=== PATIENT | female | born 1955 | race American Indian/Alaskan Native ===

== ENCOUNTER 2020-08-21 12:15 | Inpatient (IN) | payer MEDICARE ==
[2020-08-21] MEDS ORDERED: LORazepam 2 MG/ML VIAL IV ONE (13:18)
[2020-08-21] MEDS ORDERED: dilTIAZem 25 MG/5 ML INJ IV ONE (13:18)
[2020-08-21] MEDS ORDERED: LORazepam 2 MG/ML VIAL ONE (13:18)
[2020-08-21] MEDS ORDERED: dilTIAZem 25 MG/5 ML INJ ONE (13:18)
[2020-08-21] MEDS ORDERED: SODIUM CHLORIDE 0.9% 1000 ML 1,000 ML IV ONE (13:18)
--- NOTE | 2020-08-21 13:22 | Emergency Department Report ---
ED Palpitations HPI - General Chief Complaint: Arrhythmia/Palpitations Stated Complaint: PALPITATIONS ANXIETY Time Seen by Provider: 08/21/20 13:12 Source: patient Mode of arrival: Ambulatory Limitations: No Limitations - History of Present Illness Initial Comments: Patient is 65 years old female with no significant past medical history except for panic attack and remote history of atrial fibrillation 5 years ago for which the patient was admitted to this hospital. Patient stated that she is not taking any medication now. Patient presented with sudden onset of palpitation. Patient denied any shortness of breath or chest pain. Patient accompanied by her daughter and stated that her mother has severe panic attack and she have to be with her all the time. Patient denied any fever or chills. No nausea or vomiting. MD Complaint: rapid heart beat, palpitations, irregular heart beat, atrial fibrillation -: Sudden, This morning Context: occured during rest Arrythmia History: atrial fibrillation Associated Symptoms: denies other symptoms - Related Data Home Medications Medication Instructions Recorded Confirmed Last Taken Citalopram Hydrobromide [celeXA] 20 mg PO HS 07/18/15 07/18/15 Unknown clonazePAM [KlonoPIN] 2 mg PO HS 07/18/15 07/18/15 Unknown Previous Rx's Medication Instructions Recorded Last Taken Type Apixaban [Eliquis] 5 mg PO BID #60 tablet 07/20/15 Unknown Rx Furosemide [Lasix TAB] 40 mg PO QDAY #30 tablet 07/20/15 Unknown Rx Metoprolol [Lopressor TAB] 25 mg PO Q6H #30 day 07/20/15 Unknown Rx Potassium Chloride [K-Dur] 20 meq PO QDAY #30 tablet 07/20/15 Unknown Rx Allergies Allergy/AdvReac Type Severity Reaction Status Date / Time No Known Allergies Allergy Verified 10/24/13 13:28 ED Review of Systems ROS: Stated complaint: PALPITATIONS ANXIETY Other details as noted in HPI Comment: All other systems reviewed and negative Constitutional: denies: chills, fever Respiratory: denies: cough, shortness of breath Cardiovascular: palpitations. denies: chest pain, dyspnea on exertion, orthopnea Gastrointestinal: denies: abdominal pain, nausea, vomiting Neurological: denies: headache, weakness, numbness, paresthesias, confusion, abnormal gait Psychiatric: anxiety. denies: depression, auditory hallucinations, visual hallucinations, homicidal thoughts ED Past Medical Hx - Past Medical History Previous Medical History?: Yes Hx Hypertension: No Hx Heart Attack/AMI: No Hx Congestive Heart Failure: No Hx Diabetes: No Hx Deep Vein Thrombosis: No Hx Pulmonary Embolism: No Hx Psychiatric Treatment: Yes (anxiety) Hx Asthma: No Hx COPD: No Hx Tuberculosis: No Hx HIV: No Additional medical history: A-FIB 10 YRS AGO - Surgical History Past Surgical History?: No Hx Coronary Stent: No Hx Open Heart Surgery: No Hx Pacemaker: No Hx Internal Defibrillator: No Hx Cholecystectomy: No Hx Appendectomy: No Hx Breast Surgery: No - Social History Smoking Status: Former Smoker - Medications Home Medications: Home Medications Medication Instructions Recorded Confirmed Last Taken Type Citalopram Hydrobromide [celeXA] 20 mg PO HS 07/18/15 07/18/15 Unknown History clonazePAM [KlonoPIN] 2 mg PO HS 07/18/15 07/18/15 Unknown History Apixaban [Eliquis] 5 mg PO BID #60 tablet 07/20/15 Unknown Rx Furosemide [Lasix TAB] 40 mg PO QDAY #30 tablet 07/20/15 Unknown Rx Metoprolol [Lopressor TAB] 25 mg PO Q6H #30 day 07/20/15 Unknown Rx Potassium Chloride [K-Dur] 20 meq PO QDAY #30 tablet 07/20/15 Unknown Rx ED Physical Exam - General Limitations: No Limitations General appearance: alert, in no apparent distress, anxious - Head Head exam: Present: atraumatic, normocephalic, normal inspection - Eye Eye exam: Present: normal appearance, PERRL - ENT ENT exam: Present: normal exam, normal orophraynx, mucous membranes moist - Neck Neck exam: Present: normal inspection, full ROM. Absent: tenderness, meningismus - Respiratory Respiratory exam: Present: normal lung sounds bilaterally - Cardiovascular Cardiovascular Exam: Present: tachycardia, irregular rhythm - GI/Abdominal GI/Abdominal exam: Present: soft, normal bowel sounds. Absent: distended, tenderness, guarding, rebound, rigid, organomegaly, mass, bruit, pulsatile mass, hernia - Extremities Exam Extremities exam: Present: normal inspection, full ROM, normal capillary refill. Absent: tenderness, pedal edema, joint swelling, calf tenderness - Back Exam Back exam: Present: normal inspection, full ROM. Absent: CVA tenderness (R), CVA tenderness (L) - Neurological Exam Neurological exam: Present: alert, oriented X3, CN II-XII intact, normal gait, reflexes normal. Absent: motor sensory deficit - Psychiatric Psychiatric exam: Present: normal mood, anxious - Skin Skin exam: Present: warm, intact, normal color ED Course Vital Signs 08/21/20 08/21/20 08/21/20 12:26 13:10 13:15 Temperature 98.3 F Pulse Rate 79 169 H 178 H Respiratory 16 14 Rate Blood Pressure 143/88 130/92 Blood Pressure [Left] O2 Sat by Pulse 99 95 Oximetry 08/21/20 08/21/20 08/21/20 13:31 13:45 13:58 Temperature Pulse Rate 158 H 140 H 118 H Respiratory 18 17 17 Rate Blood Pressure 130/92 116/75 Blood Pressure 110/66 [Left] O2 Sat by Pulse 84 97 Oximetry ED Medical Decision Making - Lab Data Result diagrams: 08/21/20 13:27 08/21/20 13:27 - EKG Data -: EKG Interpreted by Wy - EKG Data 08/21/20 15:41 Atrial fibrillation with RVR heart rate of 156 - Radiology Data Radiology results: report reviewed - Medical Decision Making Patient is 65 years old female with no significant past medical history except for panic attack and remote history of atrial fibrillation 5 years ago for which the patient was admitted to this hospital. Patient stated that she is not taking any medication now. Patient presented with sudden onset of palpitation. Patient denied any shortness of breath or chest pain. Patient accompanied by her daughter and stated that her mother has severe panic attack and she have to be with her all the time. Patient denied any fever or chills. No nausea or vomiting. Patient Received Cardizem 20 mg IV and started on Cardizem drip. Chest x-ray is unremarkable. Labs reviewed and is unremarkable. I discussed the patient with Dr. Chavez, he agreed to admit the patient to medical service for further management. Critical Care Time: Yes Critical care time in (mins) excluding proc time.: 30 Critical care attestation.: If time is entered above; I have spent that time in minutes in the direct care of this critically ill patient, excluding procedure time. ED Disposition Clinical Impression: Atrial fibrillation with RVR Disposition: OP ADMIT IP TO THIS HOSP Is pt being admited?: Yes Condition: Stable
[2020-08-21] MEDS: dilTIAZem/D5W 100 MG/100 ML BAG IV SCH ×3 (13:30→14:46)
[2020-08-21 13:55] LABS: Basophils % (Auto) 0.5 % (0.0-1.8); Eosinophils % (Auto) 0.1 % (0.0-4.3); Hematocrit 36.6 % (30.3-42.9); Hemoglobin 12.1 gm/dl (10.1-14.3); Lymphocytes # (Auto) 1.5 K/mm3 (1.2-5.4); Lymphocytes % (Auto) 34.7 % (13.4-35.0); Mean Corpuscular HGB Conc 33 % (30-34); Mean Corpuscular Volume 85 fl (79-97); Monocytes # (Auto) 0.4 K/mm3 (0.0-0.8); Platelet Count 173 K/mm3 (140-440); Red Blood Count 4.32 M/mm3 (3.65-5.03); Red Cell Distribution Width 14.2 % (13.2-15.2)
[2020-08-21 14:16] LABS: Alanine Aminotransferase 28 units/L (7-56); BUN/Creatinine Ratio 20; Blood Urea Nitrogen 16 mg/dL (7-17); Hemolysis Index 7
--- NOTE | 2020-08-21 14:22 | XRay Report ---
CHEST 1 VIEW INDICATION / CLINICAL INFORMATION: palpitations. COMPARISON: No prior chest radiographs are available. FINDINGS: SUPPORT DEVICES: None. HEART / MEDIASTINUM: Cardiac size is borderline to mildly enlarged. LUNGS / PLEURA: There is mild interstitial pulmonary edema without suggestion of pneumonia or signifi cant pleural effusion. No pneumothorax. ADDITIONAL FINDINGS: No significant additional findings. IMPRESSION: 1. Borderline cardiomegaly with mild interstitial pulmonary edema. Signer Name: Annmarie Hankins MD Signed: 08/21/2020 2:18 PM Workstation Name: [id number]
--- NOTE | 2020-08-21 21:14 | History and Physical Report ---
History of Present Illness Date of examination: 08/21/20 Date of admission: 08/21/20 15:42 Chief complaint: Palpitations since a.m. History of present illness: 65-year-old -[place] female with history of atrial fibrillation for the past 10 years and anxiety disorder and hypertension comes in for palpitations since 5 AM. Patient is apparently not taking her medication. Patient was diagnosed with atrial fibrillation about 5 years ago. First of which she was admitted to the hospital. Patient is not on any anticoagulation antihypertensives. Patient is noncompliant. Patient presents with sudden onset of palpitation and no shortness of breath. Daughter states that her mother had severe panic attack and she has to be with her all the time. No fever or chills. No exposure to coronavirus. No chest pain. No diaphoresis. No shortness of breath. Only palpitations examination. Heart rate was in the 120s but initially it was in the 180s and 200s. Patient was treated in the emergency room. - Past Medical History --Previous Medical History?: Yes --Psychiatric Treatment: Yes (anxiety) --Additional medical history: A-FIB 10 YRS AGO - Surgical History Past Surgical History?: No - Social History Smoking Status: Former Smoker - Medications Home Medications: Home Medications Medication Instructions Recorded Confirmed Last Taken Type Citalopram Hydrobromide [celeXA] 20 mg PO HS 07/18/15 07/18/15 Unknown History clonazePAM [KlonoPIN] 2 mg PO HS 07/18/15 07/18/15 Unknown History Apixaban [Eliquis] 5 mg PO BID #60 tablet 07/20/15 Unknown Rx Furosemide [Lasix TAB] 40 mg PO QDAY #30 tablet 07/20/15 Unknown Rx Metoprolol [Lopressor TAB] 25 mg PO Q6H #30 day 07/20/15 Unknown Rx Potassium Chloride [K-Dur] 20 meq PO QDAY #30 tablet 07/20/15 Unknown Rx Review of Systems ROS: Constitutional no weight loss or weight gain no fever or chills HEENT no sore throat no post nasal drip no diplopia Neck no neck stiffness no lymph gland enlargement Chest and lungs no shortness of breath cough or wheezing CVS palpitations GI no nausea no vomiting no diarrhea Genitourinary system no dysuria no flank pain Musculoskeletal system no muscle pains no joint pains [employer] no syncope no seizures Skin no rash no itching Psychiatric no depression no homicidal or suicidal tendencies Hematologic no lymphedema or bruising Endocrine no polydipsia no polyuria no cold intolerance no heat intolerance Medications and Allergies Allergies Allergy/AdvReac Type Severity Reaction Status Date / Time No Known Allergies Allergy Verified 10/24/13 13:28 Home Medications Medication Instructions Recorded Confirmed Last Taken Type Citalopram Hydrobromide [celeXA] 20 mg PO HS 07/18/15 07/18/15 Unknown History clonazePAM [KlonoPIN] 2 mg PO HS 07/18/15 07/18/15 Unknown History Apixaban [Eliquis] 5 mg PO BID #60 tablet 07/20/15 Unknown Rx Furosemide [Lasix TAB] 40 mg PO QDAY #30 tablet 07/20/15 Unknown Rx Metoprolol [Lopressor TAB] 25 mg PO Q6H #30 day 07/20/15 Unknown Rx Potassium Chloride [K-Dur] 20 meq PO QDAY #30 tablet 07/20/15 Unknown Rx Active Meds: Active Medications Diltiazem HCl (Cardizem/D5w 100mg/100ml) 100 mg in 100 mls @ 5 mls/hr IV TITR IVAN; Protocol Last Admin: 08/21/20 14:46 Dose: 15 mg/hr, 15 mls/hr Documented by: Exam - Constitutional Vitals: Temp Pulse Resp BP Pulse Ox 98.3 F 127 H 19 112/65 91 08/21/20 12:26 08/21/20 20:07 08/21/20 20:07 08/21/20 19:56 08/21/20 20:07 General appearance: Present: no acute distress, well-nourished - EENT Eyes: Present: PERRL ENT: hearing intact, clear oral mucosa - Neck Neck: Present: supple, normal ROM - Respiratory Respiratory effort: normal Respiratory: bilateral: CTA - Cardiovascular Heart rate: 78 Rhythm: regular Heart Sounds: Present: S1 & S2. Absent: rub, click - Extremities Extremities: no ischemia, pulses intact, pulses symmetrical, No edema Peripheral Pulses: within normal limits - Abdominal General gastrointestinal: Present: soft, non-tender, non-distended, normal bowel sounds Female genitourinary: Present: normal - Integumentary Integumentary: Present: clear, warm, dry - Musculoskeletal Musculoskeletal: gait normal, strength equal bilaterally - Psychiatric Psychiatric: appropriate mood/affect, intact judgment & insight - Neurologic Neurologic: CNII-XII intact, moves all extremities - Allied Health Allied health notes reviewed: nursing, case management HEART Score - HEART Score History: Moderately suspicious EKG: Non-specific Age: > 65 Risk factors: 1-2 risk factors Troponin: Troponin T < 0.010 ng/mL (0.00-0.029) 08/21/20 13:27 - Critical Actions Critical Actions: 0-3 pts:0.9-1.7%risk of adverse cardiac event.Candidate for discharge Results - Labs CBC & Chem 7: 08/21/20 13:27 08/21/20 13:27 Labs: Laboratory Last Values WBC 4.4 K/mm3 (4.5-11.0) L 08/21/20 13:27 RBC 4.32 M/mm3 (3.65-5.03) 08/21/20 13:27 Hgb 12.1 gm/dl (10.1-14.3) 08/21/20 13:27 Hct 36.6 % (30.3-42.9) 08/21/20 13:27 MCV 85 fl (79-97) 08/21/20 13:27 MCH 28 pg (28-32) 08/21/20 13:27 MCHC 33 % (30-34) 08/21/20 13:27 RDW 14.2 % (13.2-15.2) 08/21/20 13:27 Plt Count 173 K/mm3 (140-440) 08/21/20 13:27 Lymph % (Auto) 34.7 % (13.4-35.0) 08/21/20 13:27 [place] % (Auto) 10.0 % (0.0-7.3) H 08/21/20 13:27 Eos % (Auto) 0.1 % (0.0-4.3) 08/21/20 13:27 Baso % (Auto) 0.5 % (0.0-1.8) 08/21/20 13:27 Lymph # (Auto) 1.5 K/mm3 (1.2-5.4) 08/21/20 13:27 [place] # (Auto) 0.4 K/mm3 (0.0-0.8) 08/21/20 13:27 Eos # (Auto) 0.0 K/mm3 (0.0-0.4) 08/21/20 13:27 Baso # (Auto) 0.0 K/mm3 (0.0-0.1) 08/21/20 13:27 Seg Neutrophils % 54.7 % (40.0-70.0) 08/21/20 13:27 Seg Neutrophils # 2.4 K/mm3 (1.8-7.7) 08/21/20 13:27 Sodium 144 mmol/L (137-145) 08/21/20 13:27 Potassium 3.9 mmol/L (3.6-5.0) 08/21/20 13:27 Chloride 106.4 mmol/L (98-107) 08/21/20 13:27 Carbon Dioxide 25 mmol/L (22-30) 08/21/20 13:27 Anion Gap 17 mmol/L 08/21/20 13:27 BUN 16 mg/dL (7-17) 08/21/20 13:27 Creatinine 0.8 mg/dL (0.6-1.2) 08/21/20 13:27 Estimated GFR > 60 ml/min 08/21/20 13:27 BUN/Creatinine Ratio 20 % 08/21/20 13:27 Glucose 83 mg/dL (65-100) 08/21/20 13:27 Calcium 9.0 mg/dL (8.4-10.2) 08/21/20 13:27 Magnesium 2.10 mg/dL (1.7-2.3) 08/21/20 13:27 Total Bilirubin 0.70 mg/dL (0.1-1.2) 08/21/20 13:27 AST 22 units/L (5-40) 08/21/20 13:27 ALT 28 units/L (7-56) 08/21/20 13:27 Alkaline Phosphatase 67 units/L (35-129) 08/21/20 13:27 Troponin T < 0.010 ng/mL (0.00-0.029) 08/21/20 13:27 Total Protein 6.9 g/dL (6.3-8.2) 08/21/20 13:27 Albumin 4.0 g/dL (3.9-5) 08/21/20 13:27 Albumin/Globulin Ratio 1.4 % 08/21/20 13:27 Short CBC 08/21/20 Range/Units 13:27 WBC 4.4 L (4.5-11.0) K/mm3 Hgb 12.1 (10.1-14.3) gm/dl Hct 36.6 (30.3-42.9) % Plt Count 173 (140-440) K/mm3 BMP 08/21/20 13:27 Sodium 144 Potassium 3.9 Chloride 106.4 Carbon Dioxide 25 BUN 16 Creatinine 0.8 Glucose 83 Calcium 9.0 Cardiac Enzymes 08/21/20 Range/Units 13:27 Troponin T < 0.010 (0.00-0.029) ng/mL Liver Function 08/21/20 Range/Units 13:27 Total Bilirubin 0.70 (0.1-1.2) mg/dL AST 22 (5-40) units/L ALT 28 (7-56) units/L Alkaline Phosphatase 67 (35-129) units/L Albumin 4.0 (3.9-5) g/dL - Imaging and Cardiology EKG: report reviewed (Atrial fibrillation with RVR) Imaging and Cardiology: Chest x-ray with no acute abnormalities Assessment and Plan Advance Directives: Yes - Patient Problems (1) Atrial fibrillation with rapid ventricular response Current Visit: Yes Status: Acute Plan to address problem: Patient initiated on IV Cardizem and oral Cardizem. Cardiology consult requested. Patient is on Eliquis. Patient counseled about compliance. (2) Hypokalemia Current Visit: No Status: Acute Plan to address problem: Supplemented. (3) HTN (hypertension) Current Visit: Yes Status: Chronic Qualifiers: Hypertension type: primary hypertension Qualified Code(s): I10 - Essential (primary) hypertension Plan to address problem: Continue antihypertensives in the form of metoprolol. Adjust medications. (4) KRYSTAL (generalized anxiety disorder) Current Visit: Yes Status: Chronic Plan to address problem: Continue BuSpar. (5) DVT prophylaxis Current Visit: Yes Status: Acute Plan to address problem: On Eliquis and GI prophylaxis.
[2020-08-21] MEDS ORDERED: NON-FORMULARY EACH (Apixaban 5 MG Tablet) PO SCH (22:00)
[2020-08-21] MEDS: CITALOPRAM 20 MG TAB PO SCH (23:36)
[2020-08-21] MEDS: POTASSIUM CHLORIDE ER 20 MEQ TAB PO SCH (23:36)
[2020-08-21] MEDS: FUROSEMIDE 40 MG TAB PO SCH (23:36)
[2020-08-21] MEDS: APIXABAN 5 MG TAB PO SCH (23:37)
[2020-08-21] MEDS: METOPROLOL TARTRATE 25 MG TAB PO SCH (23:38)
[2020-08-22] MEDS: dilTIAZem 60 MG TAB PO SCH ×2 (01:15→06:16)
[2020-08-22] MEDS: dilTIAZem/D5W 100 MG/100 ML BAG IV SCH ×3 (02:34→22:18)
[2020-08-22] MEDS ORDERED: SODIUM CHLORIDE 0.9% 1000 ML 1,000 ML IV ONE (05:54)
[2020-08-22] MEDS: METOPROLOL TARTRATE 25 MG TAB PO SCH ×4 (06:13→21:05)
[2020-08-22] MEDS: APIXABAN 5 MG TAB PO SCH ×2 (09:59→22:18)
[2020-08-22] MEDS: FUROSEMIDE 40 MG TAB PO SCH (09:59)
[2020-08-22] MEDS: POTASSIUM CHLORIDE ER 20 MEQ TAB PO SCH (09:59)
[2020-08-22 11:50] LABS: Free T4 (Free Thyroxine) 1.2 ng/dL (0.76-1.46)
--- NOTE | 2020-08-22 12:02 | Progress Note ---
Assessment and Plan Assessment and plan: -- Atrial fibrillation with rapid ventricular response Current Visit: Yes Status: Acute Patient initiated on IV Cardizem and metoprolol Cardiology consult requested. Patient is on Eliquis. Patient advised to comply with medications diet and follow-up visits --HTN (hypertension) Current Visit: Yes Status: Chronic Continue antihypertensives in the form of metoprolol. Adjust medications. -- KRYSTAL (generalized anxiety disorder) Current Visit: Yes Status: Chronic Continue Klonopin --DVT prophylaxis Current Visit: Yes Status: Acute On Eliquis and GI prophylaxis. We will closely monitor the patient and adjust management as needed Patient strongly advised to comply with medications, diet and follow-up visits Follow cardiology evaluation recommendations History Interval history: I have seen and examined the patient at the bedside Patient's chart and medications reviewed Admitted with Caterina lira with rapid ventricular rate on Cardizem Intermittent rapid ventricular rate Patient denies chest pain or shortness of breath Vital signs reviewed Hospitalist Physical - Constitutional Vitals: Temp Pulse Resp BP Pulse Ox 97.2 F L 138 H 19 120/68 94 08/22/20 07:54 08/22/20 09:59 08/22/20 07:54 08/22/20 09:59 08/22/20 09:48 General appearance: Present: no acute distress, well-nourished - EENT Eyes: Present: PERRL, EOM intact - Neck Neck: Present: supple, normal ROM - Respiratory Respiratory effort: normal Respiratory: bilateral: diminished, negative: rales, rhonchi, wheezing - Cardiovascular Rhythm: regularly irregular Heart Sounds: Present: S1 & S2 - Extremities Extremities: no ischemia - Abdominal General gastrointestinal: soft, non-tender, non-distended, normal bowel sounds - Integumentary Integumentary: Present: clear, warm - Psychiatric Psychiatric: appropriate mood/affect, cooperative - Neurologic Neurologic: moves all extremities HEART Score - HEART Score EKG: Non-specific Age: > 65 Risk factors: 1-2 risk factors Troponin: Troponin T < 0.010 ng/mL (0.00-0.029) 08/21/20 13:27 - Critical Actions Critical Actions: 0-3 pts:0.9-1.7%risk of adverse cardiac event.Candidate for discharge Results - Labs CBC & Chem 7: 08/21/20 13:27 08/21/20 13:27 Labs: Laboratory Last Values WBC 4.4 K/mm3 (4.5-11.0) L 08/21/20 13:27 RBC 4.32 M/mm3 (3.65-5.03) 08/21/20 13:27 Hgb 12.1 gm/dl (10.1-14.3) 08/21/20 13:27 Hct 36.6 % (30.3-42.9) 08/21/20 13:27 MCV 85 fl (79-97) 08/21/20 13:27 MCH 28 pg (28-32) 08/21/20 13:27 MCHC 33 % (30-34) 08/21/20 13:27 RDW 14.2 % (13.2-15.2) 08/21/20 13:27 Plt Count 173 K/mm3 (140-440) 08/21/20 13:27 Lymph % (Auto) 34.7 % (13.4-35.0) 08/21/20 13:27 [place] % (Auto) 10.0 % (0.0-7.3) H 08/21/20 13:27 Eos % (Auto) 0.1 % (0.0-4.3) 08/21/20 13:27 Baso % (Auto) 0.5 % (0.0-1.8) 08/21/20 13:27 Lymph # (Auto) 1.5 K/mm3 (1.2-5.4) 08/21/20 13:27 [place] # (Auto) 0.4 K/mm3 (0.0-0.8) 08/21/20 13:27 Eos # (Auto) 0.0 K/mm3 (0.0-0.4) 08/21/20 13:27 Baso # (Auto) 0.0 K/mm3 (0.0-0.1) 08/21/20 13:27 Seg Neutrophils % 54.7 % (40.0-70.0) 08/21/20 13:27 Seg Neutrophils # 2.4 K/mm3 (1.8-7.7) 08/21/20 13:27 Sodium 144 mmol/L (137-145) 08/21/20 13:27 Potassium 3.9 mmol/L (3.6-5.0) 08/21/20 13:27 Chloride 106.4 mmol/L (98-107) 08/21/20 13:27 Carbon Dioxide 25 mmol/L (22-30) 08/21/20 13:27 Anion Gap 17 mmol/L 08/21/20 13:27 BUN 16 mg/dL (7-17) 08/21/20 13:27 Creatinine 0.8 mg/dL (0.6-1.2) 08/21/20 13:27 Estimated GFR > 60 ml/min 08/21/20 13:27 BUN/Creatinine Ratio 20 % 08/21/20 13:27 Glucose 83 mg/dL (65-100) 08/21/20 13:27 Calcium 9.0 mg/dL (8.4-10.2) 08/21/20 13:27 Magnesium 2.10 mg/dL (1.7-2.3) 08/21/20 13:27 Total Bilirubin 0.70 mg/dL (0.1-1.2) 08/21/20 13:27 AST 22 units/L (5-40) 08/21/20 13:27 ALT 28 units/L (7-56) 08/21/20 13:27 Alkaline Phosphatase 67 units/L (35-129) 08/21/20 13:27 Troponin T < 0.010 ng/mL (0.00-0.029) 08/21/20 13:27 Total Protein 6.9 g/dL (6.3-8.2) 08/21/20 13:27 Albumin 4.0 g/dL (3.9-5) 08/21/20 13:27 Albumin/Globulin Ratio 1.4 % 08/21/20 13:27 TSH 0.440 mlU/mL (0.270-4.200) 08/22/20 10:33 Free T4 1.20 ng/dL (0.76-1.46) 08/22/20 10:33 [place]/IV: Voiding Method Bedside Commode Active Medications - Current Medications Current Medications: Generic Name Dose Route Start Last Admin Trade Name Freq PRN Reason Stop Dose Admin Apixaban 5 mg 08/21/20 22:00 08/22/20 09:59 Apixaban 5 Mg Tab PO 5 mg BID IVAN Administration Citalopram Hydrobromide 20 mg 08/21/20 22:00 08/21/20 23:36 Citalopram 20 Mg Tab PO 20 mg HS IVAN Administration Clonazepam 2 mg 08/21/20 22:00 08/21/20 23:36 Clonazepam 2 Mg Tab PO 2 mg HS IVAN Administration Diltiazem HCl 60 mg 08/22/20 00:00 08/22/20 06:16 Diltiazem 60 Mg Tab PO Not Given Q6HR IVAN Furosemide 40 mg 08/21/20 22:00 08/22/20 09:59 Furosemide 40 Mg Tab PO 40 mg QDAY IVAN Administration Diltiazem HCl 100 mg in 100 mls @ 5 mls/hr 08/21/20 14:00 08/22/20 09:58 Cardizem/D5w 100mg/100ml IV 5 mg/hr TITR IVAN 5 mls/hr Administration Protocol 5 MG/HR Metoprolol Tartrate 25 mg 08/21/20 22:00 08/22/20 09:59 Metoprolol Tartrate 25 Mg Tab PO 25 mg Q6H IVAN Administration Potassium Chloride 20 meq 08/21/20 22:00 08/22/20 09:59 Potassium Chloride Er 20 Meq Tab PO 20 meq QDAY IVAN Administration
--- NOTE | 2020-08-22 12:48 | Consultation ---
History of Present Illness Consult date: 08/22/20 Requesting physician: PARISH GRAHAM Consult reason: atrial fibrillation History of present illness: Primary Instrument Repairer: Pernell Leiva Pt is a 65-year-old AA female with a hx of PAF (non-compliant with OAC) and anxiety who presented with complaints of palpitations that woke her up from sleep around 0300 last night. Pt states she felt her heart "racing and fluttering." She denies EtOH or tobacco use. Denies caffeine intake. Of note, pt has a longstanding hx of anxiety and reports that the palpitations she was feeling are similar to what she experiences prior to a panic attack, which she reports is often provoked by being alone, being in small spaces, or certain traffic situations. She does not take any anxiety meds according to her daughter. Pt was previously seen by Dr. Leiva for PAF on one occasion in 2015. She has not since followed up. According to her daughter, she does not take any medications at home, including Eliquis. Echo 06/2015 - EF 20-25%, LA mod dilated, RV hypokinetic, RA mod-severely dilated, trace AR, mod MR, mod TR, RVSP 35-40mmHg. Echo 07/2015 - EF 55-60%, grade 1 diastolic dysfxn, no significant valvular abnormalities. Lexiscan stress MPI 07/2015 - no evidence of ischemia, normal LV systolic fxn. Past History Past Medical History: atrial fib, hypertension, other (NICMP, anxiety) Past Surgical History: denies: valve replacement, CABG, PTCA Social history: lives with family. denies: smoking, alcohol abuse, prescription drug abuse Family history: CAD Medications and Allergies Allergies Allergy/AdvReac Type Severity Reaction Status Date / Time No Known Allergies Allergy Verified 10/24/13 13:28 Home Medications Medication Instructions Recorded Confirmed Last Taken Type Citalopram Hydrobromide [celeXA] 20 mg PO HS 07/18/15 07/18/15 Unknown History clonazePAM [KlonoPIN] 2 mg PO HS 07/18/15 07/18/15 Unknown History Apixaban [Eliquis] 5 mg PO BID #60 tablet 07/20/15 Unknown Rx Furosemide [Lasix TAB] 40 mg PO QDAY #30 tablet 07/20/15 Unknown Rx Metoprolol [Lopressor TAB] 25 mg PO Q6H #30 day 07/20/15 Unknown Rx Potassium Chloride [K-Dur] 20 meq PO QDAY #30 tablet 07/20/15 Unknown Rx Active Meds: Active Medications Apixaban (Apixaban 5 Mg Tab) 5 mg PO BID [facility] Last Admin: 08/22/20 09:59 Dose: 5 mg Documented by: Citalopram Hydrobromide (Citalopram 20 Mg Tab) 20 mg PO [facility] Last Admin: 08/21/20 23:36 Dose: 20 mg Documented by: Clonazepam (Clonazepam 2 Mg Tab) 2 mg PO [facility] Last Admin: 08/21/20 23:36 Dose: 2 mg Documented by: Digoxin (Digoxin 0.5 Mg/2 Ml Inj) 0.25 mg IV Q6HR [facility] Stop: 08/23/20 06:01 Furosemide (Furosemide 40 Mg Tab) 40 mg PO QDAY [facility] Last Admin: 08/22/20 09:59 Dose: 40 mg Documented by: Diltiazem HCl (Cardizem/D5w 100mg/100ml) 100 mg in 100 mls @ 5 mls/hr IV TITR [facility]; Protocol Last Admin: 08/22/20 09:58 Dose: 5 mg/hr, 5 mls/hr Documented by: Metoprolol Tartrate (Metoprolol Tartrate 25 Mg Tab) 25 mg PO Q6H [facility] Physical Examination Last Vital Signs Temp 97.2 F L 08/22/20 07:54 Pulse 138 H 08/22/20 09:59 Resp 19 08/22/20 07:54 BP 120/68 08/22/20 09:59 Pulse Ox 94 08/22/20 09:48 General appearance: no acute distress HEENT: Positive: EOMI, Normocephaly, Mucus Membranes Moist Neck: Positive: neck supple, trachea midline Cardiac: Positive: Reg Rate and Rhythm, S1/S2 Lungs: Positive: clear to auscultation Neuro: Positive: Grossly Intact Abdomen: Positive: Soft. Negative: Tender Skin: Negative: Rash Musculoskeletal: No Pain Extremities: Present: upper extr. pulses, lower extr. pulses. Absent: edema Results 08/21/20 13:27 08/21/20 13:27 Cardiac Enzymes 08/21/20 Range/Units 13:27 AST 22 (5-40) units/L CBC 08/21/20 Range/Units 13:27 WBC 4.4 L (4.5-11.0) K/mm3 RBC 4.32 (3.65-5.03) M/mm3 Hgb 12.1 (10.1-14.3) gm/dl Hct 36.6 (30.3-42.9) % Plt Count 173 (140-440) K/mm3 Lymph # (Auto) 1.5 (1.2-5.4) K/mm3 [place] # (Auto) 0.4 (0.0-0.8) K/mm3 Eos # (Auto) 0.0 (0.0-0.4) K/mm3 Baso # (Auto) 0.0 (0.0-0.1) K/mm3 Comprehensive Metabolic Panel 08/21/20 Range/Units 13:27 Sodium 144 (137-145) mmol/L Potassium 3.9 (3.6-5.0) mmol/L Chloride 106.4 (98-107) mmol/L Carbon Dioxide 25 (22-30) mmol/L BUN 16 (7-17) mg/dL Creatinine 0.8 (0.6-1.2) mg/dL Glucose 83 (65-100) mg/dL Calcium 9.0 (8.4-10.2) mg/dL AST 22 (5-40) units/L ALT 28 (7-56) units/L Alkaline Phosphatase 67 (35-129) units/L Total Protein 6.9 (6.3-8.2) g/dL Albumin 4.0 (3.9-5) g/dL - Imaging and Cardiology Echo: pending EKG: report reviewed, image reviewed EKG interpretations - Telemetry EKG Rhythm: Atrial Fibrillation - EKG Supraventricular dysrhythmia: atrial fibrillation Ventricular dysrhythmias: ventricular premature com Repolarization changes or abnormalities: nonspecific abnormality, ST segment, and/or T wave Assessment and Plan Echo pending. Will give IV digoxin 250mcg x 4 doses. Continue PO Lopressor 25mg q6h. Discontinue PO Cardizem. Wean Cardizem gtt as able. Continue anticoagulation with Eliquis. The importance of compliance d/w pt and pt's daughter at bedside. Pt seen in conjunction with Dr. Remy, who agrees with the assessment and plan of care. - Patient Problems (1) Paroxysmal atrial fibrillation with RVR Current Visit: Yes Status: Acute (2) HTN (hypertension) Current Visit: Yes Status: Chronic Qualifiers: Hypertension type: primary hypertension Qualified Code(s): I10 - Essential (primary) hypertension (3) KRYSTAL (generalized anxiety disorder) Current Visit: Yes Status: Chronic (4) Non-ischemic cardiomyopathy Current Visit: No Status: Resolved (5) History of panic attacks Current Visit: Yes Status: Chronic (6) Medical non-compliance Current Visit: Yes Status: Chronic
[2020-08-22] MEDS: DIGOXIN 0.5 MG/2 ML INJ IV SCH ×2 (14:21→18:23)
[2020-08-22] MEDS: CITALOPRAM 20 MG TAB PO SCH (22:18)
[2020-08-23] MEDS: METOPROLOL TARTRATE 25 MG TAB PO SCH ×3 (02:55→11:29)
[2020-08-23 05:59] LABS: Basophils % (Auto) 0.3 % (0.0-1.8); Eosinophils % (Auto) 0.1 % (0.0-4.3); Hematocrit 34.9 % (30.3-42.9); Hemoglobin 11.4 gm/dl (10.1-14.3); Lymphocytes # (Auto) 1.1 K/mm3 (1.2-5.4); Lymphocytes % (Auto) 19.5 % (13.4-35.0); Mean Corpuscular HGB Conc 33 % (30-34); Mean Corpuscular Volume 84 fl (79-97); Monocytes # (Auto) 0.6 K/mm3 (0.0-0.8); Monocytes % (Auto) 10.9 % (0.0-7.3); Platelet Count 160 K/mm3 (140-440); Red Blood Count 4.16 M/mm3 (3.65-5.03); Red Cell Distribution Width 13.7 % (13.2-15.2)
[2020-08-23 06:15] LABS: Alanine Aminotransferase 21 units/L (7-56); Albumin 3.6 g/dL (3.9-5); Blood Urea Nitrogen 13 mg/dL (7-17); Calcium 8.5 mg/dL (8.4-10.2); Hemolysis Index 19
[2020-08-23 06:16] LABS: BUN/Creatinine Ratio 19
[2020-08-23] MEDS: DIGOXIN 0.5 MG/2 ML INJ IV SCH ×2 (06:28)
[2020-08-23] MEDS ORDERED: FUROSEMIDE 40 MG TAB PO SCH (07:31)
--- NOTE | 2020-08-23 09:10 | Progress Note ---
Assessment and Plan 65-year-old patient with nonischemic cardiomyopathy with negative stress test in 2016 had normalization of LV function several years ago. Patient presents back with atrial fibrillation with RVR patient received IV digoxin and IV Cardizem was converted back to sinus rhythm. Will start Lopressor 50 mg twice a day. Echocardiogram shows EF down to 40% with moderate mitral regurgitation patient needs to continue oral anticoagulation Eliquis. Patient and daughter discussed about the necessary be compliant with medication patient denies any side effects with the current medication. Patient will be on low-dose diuretic losartan Lopressor and Eliquis patient will follow with Dr. Leiva may be discharged late this evening or first thing in the morning - Patient Problems (1) Paroxysmal atrial fibrillation with RVR Current Visit: Yes Status: Acute (2) HTN (hypertension) Current Visit: Yes Status: Chronic Qualifiers: Hypertension type: primary hypertension Qualified Code(s): I10 - Essential (primary) hypertension (3) History of panic attacks Current Visit: Yes Status: Chronic (4) Medical non-compliance Current Visit: Yes Status: Chronic (5) Non-ischemic cardiomyopathy Current Visit: No Status: Acute Subjective Date of service: 08/23/20 Principal diagnosis: Atrial fibrillation Interval history: Patient denies any palpitations or shortness of breath Objective Vital Signs Temp Pulse Resp BP BP Pulse Ox 08/23/20 08:54 71 126/64 08/23/20 07:44 98.8 F 71 20 126/64 90 08/23/20 06:28 69 130/69 08/23/20 03:33 99.0 F 81 18 130/69 98 08/23/20 02:55 80 136/69 08/23/20 00:00 77 08/22/20 23:37 98.9 F 77 20 135/69 99 08/22/20 21:05 91 H 138/73 08/22/20 19:20 99.3 F 139 H 16 136/73 100 08/22/20 18:23 123 H 124/90 08/22/20 16:21 136 H 97 08/22/20 16:20 98.5 F 115 H 19 124/90 97 08/22/20 14:21 124 H 124/88 08/22/20 14:16 93 H 94 08/22/20 14:14 98.3 F 124 H 18 124/88 95 08/22/20 09:59 138 H 120/68 08/22/20 09:56 138 H 08/22/20 09:48 78 120/68 94 - Physical Examination HEENT: Positive: EOMI, Normocephaly, Mucus Membranes Moist Neck: Positive: neck supple, trachea midline Cardiac: Positive: Reg Rate and Rhythm Lungs: Positive: clear to auscultation Neuro: Positive: Grossly Intact Abdomen: Positive: Soft. Negative: Tender Skin: Negative: Rash Musculoskeletal: No Pain Extremities: Present: upper extr. pulses, lower extr. pulses. Absent: edema - Labs and Meds Cardiac Enzymes 08/23/20 Range/Units 05:30 AST 15 (5-40) units/L CBC 08/23/20 Range/Units 05:30 WBC 5.6 (4.5-11.0) K/mm3 RBC 4.16 (3.65-5.03) M/mm3 Hgb 11.4 (10.1-14.3) gm/dl Hct 34.9 (30.3-42.9) % Plt Count 160 (140-440) K/mm3 Lymph # (Auto) 1.1 L (1.2-5.4) K/mm3 [place] # (Auto) 0.6 (0.0-0.8) K/mm3 Eos # (Auto) 0.0 (0.0-0.4) K/mm3 Baso # (Auto) 0.0 (0.0-0.1) K/mm3 Comprehensive Metabolic Panel 08/23/20 Range/Units 05:30 Sodium 139 (137-145) mmol/L Potassium 4.0 (3.6-5.0) mmol/L Chloride 106.1 (98-107) mmol/L Carbon Dioxide 21 L (22-30) mmol/L BUN 13 (7-17) mg/dL Creatinine 0.7 (0.6-1.2) mg/dL Glucose 93 (65-100) mg/dL Calcium 8.5 (8.4-10.2) mg/dL AST 15 (5-40) units/L ALT 21 (7-56) units/L Alkaline Phosphatase 60 (35-129) units/L Total Protein 6.2 L (6.3-8.2) g/dL Albumin 3.6 L (3.9-5) g/dL - Imaging and Cardiology EKG: report reviewed, image reviewed Echo: report reviewed (EF 40% with moderate mitral rotation) - Telemetry EKG Rhythm: Sinus Rhythm (Patient converted to normal sinus rhythm this morning) - EKG Ventricular dysrhythmias: ventricular premature com Repolarization changes or abnormalities: nonspecific abnormality, ST segment, and/or T wave
--- NOTE | 2020-08-23 09:44 | Electrocardiograph Report ---
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
[2020-08-23] MEDS ORDERED: LOSARTAN 25 MG TAB PO SCH (10:00)
[2020-08-23] MEDS: APIXABAN 5 MG TAB PO SCH (11:23)
--- NOTE | 2020-08-23 14:21 | Discharge Summary ---
Providers - Providers Date of Admission: 08/21/20 15:42 Date of discharge: 08/23/20 Attending physician: PARISH GRAHAM 08/22/20 12:00 Consult to Physician [CONS] Routine Comment: Consulting Provider: KEERTHI GILES Physician Instructions: Reason For Exam: Afib RVR Primary care physician: LUCILA NUR MD Hospitalization Reason for admission: Palpitations of 1 day duration Condition: Stable Pertinent studies: Chest x-ray ; borderline cardiomegaly mild interstitial pulmonary edema echocardiogram; EF 40 to 45% Hospital course: 65-year-old -[place] female patient with history of atrial fibrillation for more than 10 years, noncompliant with medications, hypertension was admitted through emergency room with palpitations. Patient was noted to be in A. fib with rapid ventricular rate, patient has history of A. fib however noncompliant with medications. Patient has history of panic attacks and follows psychiatrist, no exposure to COVID-19 Patient was admitted to the hospital managed appropriately with Cardizem and beta-blockers, heart rate brought to reasonable control Evaluated by project management advisor, medications optimized Patient was counseled the importance oriented treatment plan Patient symptoms slowly but significantly improved Today she is comfortable no new complaints vital signs stable physical examination prior to discharge No new changes, cleared by cardiology for discharge sometime this evening patient is hemodynamically and clinically stable at discharge Advised to follow project management advisor and primary care physician per schedule. Plan of care reviewed with the patient and her nurse Final diagnosis: -- Atrial fibrillation with rapid ventricular response Current Visit: Yes Status: Acute Patient initiated on IV Cardizem letter metoprolol added Chronic anticoagulation on Eliquis. Cardiology evaluated the patient medications optimized --HTN (hypertension) Current Visit: Yes Status: Chronic Continue antihypertensives in the form of metoprolol. Adjust medications. --Nonischemic cardiomyopathy; Current Visit: Yes Status: Acute Continue antifailure medications -- KRYSTAL (generalized anxiety disorder) Current Visit: Yes Status: Chronic Continue Klonopin --DVT prophylaxis Current Visit: Yes Status: Acute continue antifailure medications On Eliquis and GI prophylaxis. Cleared by cardiology for discharge and follow-up outpatient Stable at discharge Disposition: TO HOME OR SELFCARE Final Discharge Diagnosis (Prints w/discharge instructions): Atrial fibrillation with rapid ventricular rate. Now rate controlled. Hypertension. Generalized anxiety disorder. Nonischemic cardiomyopathy Time spent for discharge: 35 min Core Measure Documentation - Palliative Care Palliative Care/ Comfort Measures: Not Applicable - Core Measures Any of the following diagnoses?: none Exam - Constitutional Vitals: Temp Pulse Resp BP Pulse Ox 98.8 F 64 20 126/64 90 08/23/20 07:44 08/23/20 12:00 08/23/20 07:44 08/23/20 11:24 08/23/20 07:44 General appearance: Present: no acute distress, well-nourished - EENT Eyes: Present: PERRL, EOM intact - Neck Neck: Present: supple, normal ROM - Respiratory Respiratory effort: normal Respiratory: bilateral: diminished, negative: rales, rhonchi, wheezing - Cardiovascular Rhythm: regular Heart Sounds: Present: S1 & S2 - Extremities Extremities: no ischemia, No edema - Abdominal General gastrointestinal: Present: soft, non-tender, non-distended, normal bowel sounds - Integumentary Integumentary: Present: clear, warm - Musculoskeletal Musculoskeletal: strength equal bilaterally, generalized weakness - Psychiatric Psychiatric: appropriate mood/affect, cooperative - Neurologic Neurologic: CNII-XII intact, moves all extremities Plan Activity: advance as tolerated, fall precautions Diet: other (Cardiac diet) Additional Instructions: Fall precautions. If you have worsening symptoms contact MD or go to emergency room as needed. Strongly advised to comply with medications, diet and follow-up visits. If you notice any bleeding, stop Eliquis and contact MD. NOTE: Metoprolol dose changed to 50 mg twice daily. Furosemide 40 changed to furosemide 20 mg daily. New medication losartan 25 mg daily Follow up with: LUCILA NUR MD [Primary Care Provider] - 7 Days BRENDA ISRAEL MD [Staff Physician] - 7 Days Prescriptions: Citalopram Hydrobromide [celeXA] 20 mg PO HS #14 Losartan [Cozaar] 25 mg PO QDAY #30 tablet clonazePAM [KlonoPIN] 2 mg PO HS #14 Furosemide [Lasix] 20 mg PO QDAY #30 tablet Metoprolol [Lopressor TAB] 50 mg PO BID #60 tablet
[2020-08-23 16:17] VITALS: BP 144/73
--- NOTE | 2020-08-28 10:49 | Electrocardiograph Report ---
[facility] Test Date: 2020-08-23 Test Time: 00:50:58 Pat Name: SULLY BOWMAN Department: Room: A477 1 Gender: F [employer] Consultant: RADHA : 1955 Requested By: PARISH GRAHAM Order Number: [id number] Reading MD: Medardo Crump Measurements Intervals [place] Rate: 74 P: 66 [place]: 159 QRS: 38 QRSD: 88 T: 32 QT: 407 QTc: 451 Interpretive Statements Sinus rhythm Compared to ECG 08/21/2020 12:32:55 Atrial fibrillation no longer present Ventricular premature complex(es) no longer present Early repolarization no longer present Electronically Signed On 08-28-2020 10:49:41 EDT by Medardo Crump
== END 2020-08-23 17:14 | disposition home or self-care (01) | DRG 310 ==
LOC: ED 12:15 → 4A 15:42
PROVIDERS: ADMIT Internal Medicine; ATTEND Internal Medicine
DX: I48.20 Chronic atrial fibrillation, unspecified (principal); I10 Essential (primary) hypertension; F41.9 Anxiety disorder, unspecified; I42.8 Other cardiomyopathies; F41.1 Generalized anxiety disorder; E87.6 Hypokalemia; Z79.899 Other long term (current) drug therapy; Z79.01 Long term (current) use of anticoagulants; Z87.891 Personal history of nicotine dependence; Z91.19 Patient's noncompliance with other medical treatment and regimen; Z82.49 Family history of ischemic heart disease and other diseases of the circulatory system
CPT/HCPCS: 36415; 71045; 80053; 83735; 84439; 84443; 84484; 85025; 93005; 93306; 96361; 96374; 96375; G0378; J1160; J2060; J7030